=== PATIENT | female | born 1985 | race Native Hawaiian/Other Pacific Islander ===

== ENCOUNTER 2017-08-26 14:14 | Emergency (ER) | payer BC ==
[2017-08-26 14:28] VITALS: BP 114/57
[2017-08-26] MEDS ORDERED: ULTRAM PO ONE (15:49)
[2017-08-26] MEDS ORDERED: MOTRIN PO ONE (15:49)
--- NOTE | 2017-08-26 17:23 | XRay Report ---
FINAL REPORT PROCEDURE: XR CHEST ROUTINE 2V TECHNIQUE: PA and lateral chest radiographs were obtained. CPT 82801 HISTORY: chest pain COMPARISON: No prior studies are available for comparison. FINDINGS: Heart: Normal. Mediastinum/Vessels: Normal. Lungs/Pleural space: Normal. Bony thorax: No acute osseous abnormality. There appears to be mild lumbar scoliosis convex to the left. This is only partially visualized. Other: IMPRESSION: No evidence of acute cardiac or pulmonary process. Mild lumbar scoliosis suspected..
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
== END 2017-08-26 17:40 | disposition home or self-care (01) ==
LOC: ED 14:14
DX: R07.89 Other chest pain (principal); I10 Essential (primary) hypertension; E11.9 Type 2 diabetes mellitus without complications; Z88.6 Allergy status to analgesic agent; Z88.2 Allergy status to sulfonamides
CPT/HCPCS: 71046; 93005; 93010; 99283